=== PATIENT | female | born 1950 | race Caucasian/White ===

== ENCOUNTER 2018-05-09 12:10 | Emergency (ER) | payer MEDICARE, BC ==
[~2018-05-09] VITALS: Ht 157.5 cm; Wt 108.9 kg
[~2018-05-09 12:10] MED LIST: AMITRIPTYLINE H25 M2 PO; ATENOLOL 25 MG25 M1 PO; CYCLOBENZAPRINE10 MG PO; CYMBALTA60 MG PO; ETODOLAC 400 M400 MG PO; LANSOPRAZOLE30 M1 PO; PREMARIN0.45 MG PO; VITAMIN D22000 UNIT
[2018-05-09] MEDS ORDERED: OMEPRAZOLE20 M2 PO (12:37)
[2018-05-09] MEDS ORDERED: TRELEGY ELLIPT1 EACH INH (12:38)
[2018-05-09] MEDS ORDERED: COMBIVENT RESPIM4 GM INH (12:39)
[2018-05-09] MEDS ORDERED: SPIRIVA RESPIMAT4 G1 INH (12:39)
[2018-05-09 12:53] LABS: ABSOLUTE BASOPHILS 0.1 thou/uL (0.0-0.2); ABSOLUTE EOSINOPHILS 0.2 thou/uL (0.0-0.7); ABSOLUTE LYMPHOCYTES 2.2 thou/uL (0.8-5.3); ABSOLUTE MONOCYTES 0.5 thou/uL (0.0-1.2); ABSOLUTE NEUTROPHILS 4.9 thou/uL (1.6-8.1); BASOPHILS 0.9 %; EOSINOPHILS 2.2 %; HEMATOCRIT 47.6 % (37.0-47.0); HEMOGLOBIN 16.2 gm/dL (12.0-15.0); LYMPHOCYTES 27.6 %; MCH 31.1 pg (26.0-34.0); MCHC 34.1 g/dL (28.0-37.0); MCV 91.1 fL (80.0-100.0); MONOCYTES 6.7 %; MPV 8.3 fl. (7.2-11.1); NUCLEATED RBCS 0 /100WBC; PLATELET COUNT* 205 thou/uL (150-400); POLYS 62.6 %; RBC 5.22 mil/uL (4.20-5.00); RDW-CV 14.6 % (10.5-14.5); WBC 7.8 thou/uL (4.0-11.0)
[2018-05-09 13:02] LABS: ANION GAP 6 mmol/L (7-16); BUN 12 mg/dL (7-18); CALCIUM 9.2 mg/dL (8.5-10.1); CHLORIDE 104 mmol/L (98-107); CO2 30 mmol/L (21-32); CREATININE 0.8 mg/dL (0.6-1.3); GLUCOSE 119 mg/dL (70-99); POTASSIUM 3.8 mmol/L (3.5-5.1); SODIUM 140 mmol/L (136-145)
[2018-05-09 13:13] LABS: ALBUMIN 3.5 g/dL (3.4-5.0); ALKALINE PHOSPHATASE 107 U/L (46-116); NT-PRO BRAIN NAT PEPTIDE 30 pg/mL (<300); SGOT 25 U/L (15-37); SGPT 33 U/L (30-65); TOTAL BILIRUBIN 0.4 mg/dL (<0.1-1.0); TOTAL PROTEIN 7.6 g/dL (6.4-8.2); TROPONIN-I LEVEL <0.06 ng/mL (<0.06)
[2018-05-09 13:39] LABS: INFLUENZA A ANTIGEN None Detected (None Detect); INFLUENZA B ANTIGEN None Detected (None Detect)
--- NOTE | 2018-05-09 15:03 | EKG ---
[place] [address] ELECTROCARDIOGRAM REPORT Name: MARLIN PADILLA I Room: [facility]#: [id number] Admission: 05/09/18 Attend Phys: Discharge: Date of : 48 Report #: [id number] THIS REPORT FOR: //name// [facility] ED Test Date: 2018-05-09 Test Time: 12:51:17 Pat Name: MARLIN PADILLA Department: Room: Gender: F Psychological Assistant: LYNDSEY : 1950 Requested By: Laurent Dupont Order Number: [id number] MD: Mannie Mcmanus Measurements Intervals [place] Rate: 91 P: 43 DC: 130 QRS: -12 QRSD: 85 T: 5 QT: 352 QTc: 434 Interpretive Statements Sinus rhythm LVH by voltage Compared to ECG 08/08/2007 15:28:20 Left ventricular hypertrophy now present Electronically Signed On 05-09-2018 15:03:34 DIRECTOR OF SCIENTIFIC RESEARCH by Mannie Mcmanus [email or web address] <ELECTRONICALLY SIGNED> By: Mannie Mcmanus MD, [facility] 05/09/18 1503 1251 125 Mannie Mcmanus MD, FACC /EPI
[2018-05-09 15:19] VITALS: BP 127/89
== END 2018-05-09 15:20 | disposition home or self-care (01) ==
LOC: M.ERS 12:10
PROVIDERS: Emergency Medicine
DX: R06.00 Dyspnea, unspecified (principal); R06.02 Shortness of breath; J45.909 Unspecified asthma, uncomplicated; M79.7 Fibromyalgia; Z90.710 Acquired absence of both cervix and uterus; Z88.5 Allergy status to narcotic agent; Z88.8 Allergy status to other drugs, medicaments and biological substances